=== PATIENT | male | born 1955 | race Caucasian/White ===

== ENCOUNTER 2017-12-15 14:39 | Emergency (ER) | payer BC ==
[2017-12-15] MEDS ORDERED: LIDOCAINE HCL 2% 20ML ONE (15:08)
[2017-12-15] MEDS ORDERED: TETANUS/DIPHTHERIA TOXOID [ADULT] 0.5 ML VIAL IM ONE (15:44)
[2017-12-15] MEDS ORDERED: HYDROCODONE/ACETAMINOPHEN 5/325 MG TAB ONE (16:29)
== END 2017-12-15 17:45 | disposition home or self-care (01) ==
LOC: EDH 14:39
DX: S52.572A Other intraarticular fracture of lower end of left radius, initial encounter for closed fracture (principal); S70.02XA Contusion of left hip, initial encounter; S50.812A Abrasion of left forearm, initial encounter; S00.01XA Abrasion of scalp, initial encounter; V92.09XA Drowning and submersion due to fall off unspecified watercraft, initial encounter; Y93.89 Activity, other specified; Y92.89 Other specified places as the place of occurrence of the external cause; Y99.8 Other external cause status
CPT/HCPCS: 64450; 73110; 73502; 73700; 90471; 90714; 99284; J3490

== ENCOUNTER 2021-01-30 10:10 | Inpatient (IN) | payer BC, MEDICARE, OTHER ==
[~2021-01-30] VITALS: Ht 195.6 cm; Wt 110.5 kg
[2021-01-30 10:12] VITALS: BP 187/78
[2021-01-30] MEDS ORDERED: HYDRALAZINE 20MG/ML VIAL IV SCH (10:45)
[2021-01-30 10:49] LABS: BASOPHILS % (AUTO) 0.8 % (0.0-5.0); EOSINOPHILS % (AUTO) 3.7 % (0.0-8.0); HEMATOCRIT 44.1 % (42-54); LYMPHOCYTES % (AUTO) 18.6 % (21.0-51.0); MEAN CORPUSCULAR HEMOGLOBIN 31.3 pg (27.0-33.0); MEAN CORPUSCULAR HGB CONC 33.1 g/dL (32.0-36.0); MEAN CORPUSCULAR VOLUME 94.4 fL (79-99); MONOCYTES % (AUTO) 9.7 % (3.0-13.0); NEUTROPHILS % (AUTO) 66.8 % (40.0-77.0); PLATELET COUNT (AUTO) 199 K/uL (130-400); RED BLOOD CELL COUNT(AUTO) 4.67 MIL/uL (4.50-6.20); RED CELL DISTRIBUTION WIDTH 13.7 % (11.0-15.5); WHITE BLOOD COUNT (AUTO) 8.5 K/uL (4.8-10.8)
[2021-01-30 10:57] LABS: CREATININE 1.1 mg/dL (0.5-1.5); POTASSIUM 3.8 mmol/L (3.5-5.1)
[2021-01-30] MEDS ORDERED: ONDANSETRON 4MG INJ IVP SCH (11:00)
[2021-01-30 11:01] LABS: ALBUMIN 3.5 g/dL (3.5-5.0); BILIRUBIN,TOTAL 0.2 mg/dL (0.2-1.0); TOTAL PROTEIN, SERUM 6.8 g/dL (6.0-8.3)
[2021-01-30 11:05] VITALS: BP 133/91
[2021-01-30] MEDS ORDERED: ATOR40TA71 PO (11:14)
[2021-01-30] MEDS ORDERED: LISI10TA24 PO (11:14)
[2021-01-30 11:34] LABS: CREATINE KINASE, TOTAL 97 U/L (21-232); MYOGLOBIN 46 ng/mL (10-92); TROPONIN I < 0.04 ng/mL (0.00-0.06)
[2021-01-30 11:39] LABS: INR 1.01 (0.85-1.15)
[2021-01-30 11:40] LABS: PARTIAL THROMBOPLASTIN TIME 25.3 SEC (26.3-35.5)
[2021-01-30 17:23] VITALS: BP 131/73
[2021-01-30] MEDS ORDERED: ONDANSETRON 4MG INJ IV PRN (18:45)
[2021-01-30] MEDS ORDERED: LACTULOSE 20 GM/30 ML UDCUP PO PRN (18:45)
[2021-01-30] MEDS ORDERED: ACETAMINOPHEN 325 MG TAB PO PRN (18:45)
[2021-01-30] MEDS ORDERED: ASPI-1197 PO (19:20)
[2021-01-30 19:30] LABS: HEMOGLOBIN A1C 5.8 % (4.0-6.0)
[2021-01-30] MEDS ORDERED: IOHEXOL-350 75 ML VIAL IV ONE (19:35)
[2021-01-30] MEDS ORDERED: ASPIRIN 325 MG TABLET ONE (20:44)
[2021-01-30] MEDS ORDERED: ASPIRIN 325 MG TABLET PO ONE (20:45)
[2021-01-30] MEDS: FAMOTIDINE 20MG VIAL IV SCH (20:50)
[2021-01-30] MEDS: ATORVASTATIN 40 MG TABLET PO SCH (20:51)
[2021-01-30] MEDS ORDERED: FAMOTIDINE 20MG VIAL IV SCH (21:00)
[2021-01-31 04:10] VITALS: BP 175/91
[2021-01-31 06:16] LABS: CHOLESTEROL 106 mg/dL (<200); HDL CHOLESTEROL 44 mg/dL (29-71); LDL DIRECT 56 mg/dL (0-99); TRIGLYCERIDES 73 mg/dL (30-200)
[2021-01-31 08:31] VITALS: BP 156/82
[2021-01-31] MEDS ORDERED: ASPIRIN 325 MG TABLET PO SCH (09:00)
[2021-01-31] MEDS ORDERED: ASPIRIN 81MG CHEW TAB ONE (09:00)
[2021-01-31] MEDS: LISINOPRIL 10 MG TABLET PO SCH (09:43)
[2021-01-31] MEDS: CLOPIDOGREL 75MG TAB PO SCH (09:43)
[2021-01-31] MEDS: ASPIRIN 81MG CHEW TAB PO SCH (09:43)
[2021-01-31] MEDS ORDERED: GADOTERATE MEGLUMINE 10 MMOL/20 ML VIAL IV ONE (09:48)
[2021-01-31] MEDS: FAMOTIDINE 20MG VIAL IV SCH ×2 (09:52→21:31)
[2021-01-31 12:14] VITALS: BP 156/89
[2021-01-31] MEDS: ACETAMINOPHEN 325 MG TAB PO PRN ×2 (12:27→21:31)
[2021-01-31 16:14] VITALS: BP 122/64
[2021-01-31] MEDS ORDERED: KETOROLAC 30MG VIAL (30MG/ML) ONE (16:19)
[2021-01-31] MEDS ORDERED: KETOROLAC 30MG VIAL (30MG/ML) IV ONE (16:30)
[2021-01-31 20:11] VITALS: BP 142/67
[2021-01-31] MEDS: ATORVASTATIN 40 MG TABLET PO SCH (21:30)
[2021-01-31] MEDS ORDERED: PROCHLORPERAZINE EDISYLATE 10 MG/2 ML VIAL IV ONE (23:16)
[2021-01-31] MEDS: PROCHLORPERAZINE EDISYLATE 5 MG/ML 2 ML VIAL IVP SCH (23:16)
[2021-01-31 23:39] VITALS: BP 142/63
[2021-02-01 03:41] VITALS: BP 125/62
[2021-02-01] MEDS: PROCHLORPERAZINE EDISYLATE 5 MG/ML 2 ML VIAL IVP SCH ×2 (05:58→13:15)
[2021-02-01] MEDS ORDERED: PROCHLORPERAZINE EDISYLATE 10 MG/2 ML VIAL IV ONE ×2 (05:58→13:15)
[2021-02-01 07:50] VITALS: BP 124/65
[2021-02-01] MEDS: CLOPIDOGREL 75MG TAB PO SCH (10:22)
[2021-02-01] MEDS: ASPIRIN 81MG CHEW TAB PO SCH (10:22)
[2021-02-01] MEDS: LISINOPRIL 10 MG TABLET PO SCH (10:22)
[2021-02-01] MEDS: FAMOTIDINE 20MG VIAL IV SCH (10:22)
[2021-02-01 11:21] VITALS: BP 143/76
[2021-02-01] MEDS ORDERED: BACLOFEN 10 MG TABLET PO SCH (14:00)
[2021-02-01 15:43] VITALS: BP 149/79
[2021-02-01] MEDS ORDERED: CLON0.5T4 PO (18:22)
[2021-02-01] MEDS ORDERED: PROC5TAB54 PO (18:22)
[2021-02-01] MEDS ORDERED: IBUP-2077 PO (18:22)
== END 2021-02-01 19:48 | disposition home or self-care (01) | DRG 123 ==
LOC: EDH 10:10 → EDHIP 18:37 → 4AH 01-31 04:05 → 4BH 02-01 05:31
PROVIDERS: ADMIT Internal Medicine; ATTEND Internal Medicine
DX: H49.22 Sixth [abducent] nerve palsy, left eye (principal); E78.5 Hyperlipidemia, unspecified; I10 Essential (primary) hypertension; H91.92 Unspecified hearing loss, left ear; Z79.82 Long term (current) use of aspirin; Z79.899 Other long term (current) drug therapy; Z87.891 Personal history of nicotine dependence; Z98.1 Arthrodesis status; Z86.73 Personal history of transient ischemic attack (TIA), and cerebral infarction without residual deficits; G43.901 Migraine, unspecified, not intractable, with status migrainosus
CPT/HCPCS: 36415; 70450; 70496; 70498; 70553; 71045; 80053; 80061; 82550; 83036; 83874; 84238; 84443; 84484; 85025; 85610; 85730; 92522; 92610; 93005; G0378; J0780; J1885; J2405; J3490; Q9967

== ENCOUNTER 2021-06-19 07:25 | Day surgery (SDC) | payer OTHER ==
[2021-06-15 11:00] LABS: BASOPHILS % (AUTO) 1.5 % (0.0-5.0); EOSINOPHILS % (AUTO) 4.3 % (0.0-8.0); LYMPHOCYTES % (AUTO) 24.2 % (21.0-51.0); MEAN CORPUSCULAR HEMOGLOBIN 31.3 pg (27.0-33.0); MEAN CORPUSCULAR HGB CONC 33.3 g/dL (32.0-36.0); MEAN CORPUSCULAR VOLUME 94.2 fL (79-99); MONOCYTES % (AUTO) 12.8 % (3.0-13.0); NEUTROPHILS % (AUTO) 56.8 % (40.0-77.0); PLATELET COUNT (AUTO) 220 K/uL (130-400); RED CELL DISTRIBUTION WIDTH 13.9 % (11.0-15.5); WHITE BLOOD COUNT (AUTO) 5.3 K/uL (4.8-10.8)
[2021-06-15 11:03] LABS: APPEARANCE,URINE Clear (CLEAR); BILIRUBIN,URINE Negative (NEGATIVE); COLOR,URINE Yellow (YELLOW); GLUCOSE, URINE (UA) Negative (NEGATIVE); KETONES,URINE Negative (NEGATIVE); LEUKOCYTE ESTERASE ,URINE Small (NEGATIVE); NITRATE,URINE Negative (NEGATIVE); OCCULT BLOOD,URINE Trace (NEGATIVE); PH,URINE 5.5 (5.0-8.0); PROTEIN,URINE Negative (NEGATIVE)
[2021-06-15 11:08] LABS: CREATININE 0.9 mg/dL (0.5-1.5); INR 0.99 (0.85-1.15); POTASSIUM 4.3 mmol/L (3.5-5.1); PROTHROMBIN TIME 10.8 SEC (9.6-11.6)
[2021-06-15 11:10] LABS: PARTIAL THROMBOPLASTIN TIME 26.2 SEC (26.3-35.5)
[2021-06-15 11:35] LABS: BACTERIA,URINE Rare /HPF (None Seen); RBC,URINE 0-1 /HPF (0-1); SQUAMOUS EPITHELIAL CELL,UR Rare /HPF (0-2); WBC,URINE 0-1 /HPF (0-1)
[2021-06-15 14:12] VITALS: BP 158/69
[2021-06-19] VITALS (9 sets, daily range): BP systolic 111–161; BP diastolic 66–83
[~2021-06-19] VITALS: Ht 195.6 cm; Wt 109.9 kg
[~2021-06-19 07:25] MED LIST: 0.9% NACL 500ML IV.SOLN 500 ML IV SCH; ASPI-1197 PO; ATOR40TA71 PO; LISI10TA24 PO; VIT1CAPS47 PO
[2021-06-19] MEDS ORDERED: 0.9%NACL 1000ML 1,000 ML IV ONE (08:32)
[2021-06-19] MEDS ORDERED: NITROGLYCERIN 2 MG VIAL IV ONE (08:57)
[2021-06-19] MEDS ORDERED: NICARDIPINE 25MG INJ IV ONE (08:57)
[2021-06-19] MEDS ORDERED: IOHEXOL 350 MG/ML 100ML INFUS..BTL IV ONE (08:57)
[2021-06-19] MEDS ORDERED: SODIUM BICARB 50MEQ 50ML VIAL 50 ML ONE (08:57)
[2021-06-19] MEDS ORDERED: IOHEXOL-350 50ML VIAL IV ONE (08:57)
[2021-06-19] MEDS ORDERED: HEPARIN 10,000 UNIT/10ML (1,000 UNIT/ML) VIAL ONE (08:57)
[2021-06-19] MEDS ORDERED: LIDOCAINE HCL 400MG/20ML VIAL ONE (08:57)
[2021-06-19] MEDS ORDERED: MEPERIDINE-PF 25 MG/ML SYG ONE ×2 (09:09→09:28)
[2021-06-19] MEDS ORDERED: MIDAZOLAM HCL 1 MG/ML 2ML VIAL ONE ×2 (09:09→09:28)
[2021-06-19] MEDS ORDERED: NITROGLYCERIN 4.1 GM SPRAY TL ONE (09:53)
[2021-06-19] MEDS ORDERED: 0.9%NACL 1000ML 1,000 ML IV SCH (10:30)
[2021-06-19] MEDS ORDERED: ONDANSETRON 4MG INJ ONE (11:26)
[2021-06-19] MEDS ORDERED: MORPHINE 2 MG SYG ONE ×2 (11:27→11:32)
[2021-06-19] MEDS ORDERED: MORPHINE 4 MG SYG IVP ONE (12:00)
[2021-06-19] MEDS ORDERED: ONDANSETRON 4MG INJ IVP ONE (12:00)
== END 2021-06-19 14:17 ==
LOC: DAH 07:25
PROVIDERS: ATTEND Internal Medicine Cardiovascular Disease
DX: I25.119 Atherosclerotic heart disease of native coronary artery with unspecified angina pectoris (principal); E78.5 Hyperlipidemia, unspecified; I10 Essential (primary) hypertension; Z79.82 Long term (current) use of aspirin; Z79.01 Long term (current) use of anticoagulants; Z79.899 Other long term (current) drug therapy
CPT/HCPCS: 36415; 71045; 80048; 81001; 85025; 85610; 85730; 93005; 93458; A4215; A4216; A4221; A4222; A4223 ×3; A4606; A4663; C1760; C1894; J1644; J2175 ×2; J2250 ×2; J2405; J3490 ×3; J7030; Q9965; Q9967 ×2; 99156; 99157